=== PATIENT | female | born 1935 | race Caucasian/White ===

== ENCOUNTER 2022-01-14 07:25 | Emergency (ER) | payer MEDICARE, SELFPAY ==
--- NOTE | ~2022-01-14 | XR_ITS ---
EXAMINATION: XR chest 2V DATE: 01/14/2022 08:17 INDICATION: Neck and jaw pain TECHNIQUE: PA and lateral views of the chest are obtained. COMPARISON: 03/01/2005 FINDINGS: There is mild atelectasis of the lung bases. No pleural effusion or pneumothorax. The cardi omediastinal silhouette is normal. There is severe thoracic spondylosis. IMPRESSION: 1. No acute cardiopulmonary abnormality. Reviewed, dictated and finalized at location A.
--- NOTE | 2022-01-14 07:33 | ECG_ITS ---
Measurements Intervals [place] Rate: 78 P: 52 PA: 154 QRS: -7 QRSD: 86 T: 43 QT: 370 QTc: 423 Interpretive Statements SINUS RHYTHM Electronically Signed On 01-14-2022 8:53:50 CDT by Kirt Dominguez M.D.
[2022-01-14 07:37] VITALS: PULSE 76; RESP 18; TEMP 36.6
--- NOTE | 2022-01-14 07:40 | ED.CHESTPAIN ---
HPI - Chest Pain General Chief Complaint: Chest Pain Stated Complaint: jaw pain, left arm pain, SOB Time Seen by Provider: 01/14/22 07:39 Related Data Home Medications Medication Instructions Recorded Confirmed alprazolam 2 mg tablet 2 mg PO HS 01/14/22 01/14/22 levothyroxine 50 mcg tablet 50 mcg PO DAILY 01/14/22 01/14/22 Allergies Allergy/AdvReac Type Severity Reaction Status Date / Time codeine Allergy Unknown TACHYCARDIA Verified 01/14/22 07:44 naproxen Allergy Unknown Rash Verified 01/14/22 07:44 NONSTEROIDAL Allergy Unknown Rash Uncoded 01/14/22 07:44 Course Vital Signs Vital signs: Vital Signs Temperature 36.6 C 01/14/22 07:37 Pulse Rate 76 01/14/22 07:37 Respiratory Rate 18 01/14/22 07:37 Temperature 36.6 C 01/14/22 07:37 Pulse Rate 75 01/14/22 07:52 Respiratory Rate 17 01/14/22 07:52 Blood Pressure 159/95 H 01/14/22 07:52 Pulse Oximetry 94 01/14/22 07:52 Oxygen Delivery Room Air 01/14/22 07:52 MDM - Chest Pain Lab Data Result diagrams: 01/14/22 07:54 01/14/22 07:55 Labs: Lab Results 01/14/22 01/14/22 01/14/22 Range/Units 07:54 07:54 07:55 WBC 6.3 (4.5-10.0) K/mm3 RBC 4.62 (4.2-5.4) M/mm3 Hgb 13.6 (12.0-15.0) g/dL Hct 41.9 (37.0-47.0) % MCV 90.7 (80-100) fl MCH 29.4 (26-34) pg MCHC 32.5 (32-36) g/dl RDW 14.3 (11.5-14.5) % Plt Count 263 (150-375) k/mm3 MPV 10.5 H (7.4-10.4) fl Immature Gran % (Auto) 0.3 (0-0.5) % Neut % (Auto) 46.4 (45.5-73.1) % Lymph % (Auto) 38.5 (18.3-44.2) % Harlan % (Auto) 10.0 H (2.6-8.5) % Eos % (Auto) 3.8 (0-4.4) % Baso % (Auto) 1.0 (0.2-1.2) % Lymph # (Auto) 2.43 (0.9-3.2) K/mm3 Harlan # (Auto) 0.6 (0.1-0.6) K/mm3 Eos # (Auto) 0.2 (0-0.3) K/mm3 Baso # (Auto) 0.1 (0.0-0.1) K/mm3 Abs Immat Gran (auto) 0.02 (0.00-0.031) K/mm3 Absolute Neuts (auto) 2.9 (1.3-6.7) K/mm3 Absolute Nucleated RBC 0.0 (0.0-0.012) K/mm3 Nucleated RBC % 0.0 (0.0-0.2) % PT 13.7 (11.1-14.7) Seconds INR 1.1 APTT 26.0 (22.3-36.8) SECONDS Sodium Pending Potassium Pending Chloride Pending Carbon Dioxide Pending Anion Gap Pending BUN Pending Creatinine Pending Estim Creat Clear Calc Pending Estimated GFR Pending Glucose Pending Calcium Pending Total Bilirubin Pending AST Pending ALT Pending Alkaline Phosphatase Pending Troponin I Pending Total Protein Pending Albumin Pending Lipase Pending Discharge Plan Discharge Prescriptions: No Action levothyroxine 50 mcg tablet 50 mcg PO DAILY alprazolam 2 mg tablet 2 mg PO HS Follow-up/Referrals: Alana,Aviva Graves MD [Primary Care Provider] -
[2022-01-14 07:52] VITALS: BP 159/95; PULSE 72; PULSE 75; RESP 17; O2SAT 94
[2022-01-14 08:10] LABS: Basophils Absolute Auto 0.1 K/mm3 (0.0-0.1); Eosinophils Absolute Auto 0.2 K/mm3 (0-0.3); Eosinophils Percent Auto 3.8 % (0-4.4); Hematocrit 41.9 % (37.0-47.0); Hemoglobin 13.6 g/dL (12.0-15.0); Immature Granulocyte Absolute 0.02 K/mm3 (0.00-0.031); Immature Granulocyte Percent A 0.3 % (0-0.5); Lymphocytes Absolute Auto 2.43 K/mm3 (0.9-3.2); Lymphocytes Percent Auto 38.5 % (18.3-44.2); Mean Corpuscular HGB Conc 32.5 g/dl (32-36); Mean Corpuscular Hemoglobin 29.4 pg (26-34); Mean Corpuscular Volume 90.7 fl (80-100); Mean Platelet Volume 10.5 fl (7.4-10.4); Monocytes Absolute Auto 0.6 K/mm3 (0.1-0.6); Neutrophils Absolute Auto 2.9 K/mm3 (1.3-6.7); Neutrophils Percent Auto 46.4 % (45.5-73.1); Platelet Count Result 263 k/mm3 (150-375); Red Blood Count 4.62 M/mm3 (4.2-5.4); Red Cell Distribution Width 14.3 % (11.5-14.5); White Blood Count 6.3 K/mm3 (4.5-10.0)
[2022-01-14 08:11] LABS: INR 1.1; Prothrombin Time 13.7 Seconds (11.1-14.7)
[2022-01-14 08:21] LABS: Alanine Aminotransferase 15 U/L (6-35); Albumin Level 4.2 g/dL (3.5-5.1); Alkaline Phosphatase 63 U/L (38-126); Anion Gap 11 mmol/L (8-16); Aspartate Amino Transferase 26 U/L (14-36); Bilirubin,Total 0.6 mg/dL (0.2-1.3); Blood Urea Nitrogen 14 mg/dL (7-17); Carbon Dioxide 25 mmol/L (22-30); Chloride 102 mmol/L (98-107); Estimated CRCL calculation 55 ml/min; Estimated Glomerular Filt Rate > 60; Glucose 92 mg/dL (65-110); Lipase 103 U/L (23-300); Potassium 3.9 mmol/L (3.4-5.0); Sodium 138 mmol/L (137-145)
[2022-01-14 08:31] LABS: Troponin I < 0.012 ng/mL (0.000-0.034)
[2022-01-14 08:37] VITALS: BP 148/103; PULSE 72; RESP 20; O2SAT 94
--- NOTE | 2022-01-14 08:48 | ED.GENADULT ---
HPI - General Adult General Chief complaint: Weakness Time Seen by Provider: 01/14/22 07:39 Source: patient, family and RN notes reviewed Mode of arrival: ambulatory Limitations: no limitations History of Present Illness HPI narrative: 86 years old white female came to the emergency room with her , complaining of tiredness, lightheadedness, aches all over for the last 5 days. Patient also complaining of pressure in the head and ears which is chronic for years. Patient was seen at urgent care recently and the COVID was ruled out. Patient lives with asymptomatic . She denied any sneezing, fever, chills, coughing, chest pain or shortness of breath. Basically she is hurting all over including chest back extremities. History of hypothyroidism. Related Data Home Medications Medication Instructions Recorded Confirmed alprazolam 2 mg tablet 2 mg PO HS 01/14/22 01/14/22 levothyroxine 50 mcg tablet 50 mcg PO DAILY 01/14/22 01/14/22 Allergies Allergy/AdvReac Type Severity Reaction Status Date / Time codeine Allergy Unknown TACHYCARDIA Verified 01/14/22 07:44 naproxen Allergy Unknown Rash Verified 01/14/22 07:44 NONSTEROIDAL Allergy Unknown Rash Uncoded 01/14/22 07:44 Review of Systems Review of Systems: All systems reviewed & are unremarkable except as noted in HPI and below Exam Narrative: General appearance: Well-developed, well-nourished Skin: Normal color Head: Normocephalic, nontraumatic Eyes: Clear conjunctiva ENT: Oropharynx normal, ears normal, nose normal Neck: Supple, nontender Chest and respiratory: Airway patent, no respiratory distress, no accessory muscle use Heart: Regular rate/rhythm Abdomen: Soft, nontender, no organomegaly, quiet bowel sounds Vascular: Normal peripheral pulses, normal capillary refill. Musculoskeletal: Normal range of motion, nontender back Neurologic: Alert and oriented ?3, AIR POLLUTION COMPLIANCE INSPECTOR is normal as tested, no gross motor deficit Course Course Emergency Course: Patient presents with multiple symptoms, went to urgent care numerous of time in the last few days, does not have any any comorbidities, only history of hypothyroidism, patient does not smoke or drink, tested negative for COVID few days ago. Lives with asymptomatic . Depression, chronic ear pain, viral syndrome is my concern. Work-up today did not show any significant finding to explain her symptoms. Most of her symptoms are chronic and has been going for years. Last time was seen by her family doctor over 6 months ago. Vital Signs Vital signs: Vital Signs Temperature 36.6 C 01/14/22 07:37 Pulse Rate 76 01/14/22 07:37 Respiratory Rate 18 01/14/22 07:37 Temperature 36.6 C 01/14/22 07:37 Pulse Rate 72 01/14/22 08:37 Respiratory Rate 20 01/14/22 08:37 Blood Pressure 148/103 H 01/14/22 08:37 Pulse Oximetry 94 01/14/22 08:37 Oxygen Delivery Room Air 01/14/22 07:52 Medical Decision Making Vital Signs Vital Signs: Vital Signs Temperature 36.6 C 01/14/22 07:37 Pulse Rate 76 01/14/22 07:37 Respiratory Rate 18 01/14/22 07:37 Temperature 36.6 C 01/14/22 07:37 Pulse Rate 72 01/14/22 08:37 Respiratory Rate 20 01/14/22 08:37 Blood Pressure 148/103 H 01/14/22 08:37 Pulse Oximetry 94 01/14/22 08:37 Oxygen Delivery Room Air 01/14/22 07:52 Lab Data Result diagrams: 01/14/22 07:54 01/14/22 07:55 Labs: Lab Results 01/14/22 01/14/22 01/14/22 Range/Units 07:54 07:54 07:55 WBC 6.3 (4.5-10.0) K/mm3 RBC 4.62 (4.2-5.4) M/mm3 Hgb 13.6 (12.0-15.0) g/dL Hct 41.9 (37.0-47.0) % MCV 90.7 (80-100) fl MCH 29.4 (2
[2022-01-14 10:12] VITALS: BP 130/86; PULSE 71; RESP 17; O2SAT 95
== END 2022-01-14 10:14 | disposition home or self-care (01) ==
PROVIDERS: Emergency Provider Emergency Medicine; PCP Family Medicine
DX: B34.9 Viral infection, unspecified (principal); H92.03 Otalgia, bilateral; G89.29 Other chronic pain; E03.9 Hypothyroidism, unspecified; R07.9 Chest pain, unspecified
CPT/HCPCS: 36415; 71046; 80053; 83690; 84484; 85025; 85610; 85730; 93005; 99284

== ENCOUNTER 2022-05-27 13:14 | Emergency (ER) | payer MEDICARE, SELFPAY ==
[2022-05-27] VITALS (7 sets, daily range): BP systolic 159–168; BP diastolic 88–95; PULSE 71–101; RESP 11–20; TEMP 36.9; O2SAT 94–100
--- NOTE | ~2022-05-27 | XR_ITS ---
EXAMINATION: XR chest 2V DATE: 05/27/2022 14:12 INDICATION: Shortness of breath. Chest pain. TECHNIQUE: Frontal and lateral views of the chest were obtained. COMPARISON: Chest 2 views 01/14/2022 FINDINGS: There is mild atelectasis at left lung base. No pleural effusion or pneumothorax. The heart size is normal. IMPRESSION: 1. Mild atelectasis at left lung base. Reviewed, dictated and finalized at location A. RINARY PARASITOLOGIST
--- NOTE | 2022-05-27 13:22 | ECG_ITS ---
Measurements Intervals [place] Rate: 93 P: 51 MA: 149 QRS: 3 QRSD: 94 T: 43 QT: 327 QTc: 407 Interpretive Statements SINUS RHYTHM VENTRICULAR PREMATURE COMPLEX BORDERLINE ECG COMPARED TO ECG 01/14/2022 07:36:44 NO SIGNIFICANT CHANGES Electronically Signed On 05-27-2022 13:29:48 MEDICAL RECORDS CUSTODIAN by Spencer Ellison D.O.
[2022-05-27 13:38] LABS: Basophils Percent Auto 0.4 % (0.2-1.2); Eosinophils Percent Auto 0.3 % (0-4.4); Hematocrit 42.1 % (37.0-47.0); Hemoglobin 13.4 g/dL (12.0-15.0); Immature Granulocyte Absolute 0.04 K/mm3 (0.00-0.031); Immature Granulocyte Percent A 0.6 % (0-0.5); Lymphocytes Absolute Auto 1.38 K/mm3 (0.9-3.2); Lymphocytes Percent Auto 19.1 % (18.3-44.2); Mean Corpuscular HGB Conc 31.8 g/dl (32-36); Mean Corpuscular Hemoglobin 28.9 pg (26-34); Mean Corpuscular Volume 90.7 fl (80-100); Mean Platelet Volume 10.4 fl (7.4-10.4); Monocytes Absolute Auto 0.2 K/mm3 (0.1-0.6); Monocytes Percent Auto 2.2 % (2.6-8.5); Neutrophils Absolute Auto 5.6 K/mm3 (1.3-6.7); Neutrophils Percent Auto 77.4 % (45.5-73.1); Platelet Count Result 259 k/mm3 (150-375); Red Blood Count 4.64 M/mm3 (4.2-5.4); Red Cell Distribution Width 14.1 % (11.5-14.5); White Blood Count 7.2 K/mm3 (4.5-10.0)
[2022-05-27 13:50] LABS: Alanine Aminotransferase 25 U/L (6-35); Albumin Level 4.4 g/dL (3.5-5.1); Alkaline Phosphatase 76 U/L (38-126); Anion Gap 9 mmol/L (8-16); Aspartate Amino Transferase 29 U/L (14-36); Bilirubin,Total 0.5 mg/dL (0.2-1.3); Blood Urea Nitrogen 16 mg/dL (7-17); Calcium 8.8 mg/dL (8.4-10.2); Carbon Dioxide 24 mmol/L (22-30); Chloride 104 mmol/L (98-107); Estimated CRCL calculation 55 ml/min; Estimated Glomerular Filt Rate > 60; Glucose 180 mg/dL (65-110); Lipase 95 U/L (23-300); Potassium 4.3 mmol/L (3.4-5.0); Prothrombin Time 13.1 Seconds (11.1-14.7); Sodium 137 mmol/L (137-145)
[2022-05-27 13:51] LABS: Partial Thromboplastin Time 25.1 SECONDS (22.3-36.8)
[2022-05-27 14:01] LABS: Troponin I < 0.012 ng/mL (0.000-0.034)
--- NOTE | 2022-05-27 15:54 | ED.SOB ---
HPI - SOB/Dyspnea General Chief Complaint: Shortness of Breath/Dyspnea Stated Complaint: sob Time Seen by Provider: 05/27/22 14:47 History of Present Illness HPI Narrative: Patient is an 86-year-old female with a history of hypothyroidism, polymyalgia rheumatica presenting with shortness of breath. Patient states that for the last several weeks she has had ongoing shortness of breath. She denies alleviating or aggravating factors. States that she has also had some left-sided chest tightness for many months. States that she recently saw her PCP approximately a week ago and she was diagnosed with emphysema. She was also diagnosed with polymyalgia rheumatica. She was started on prednisone approximately 4 days ago. Patient states that she has also noticed that her blood pressure has been high lately. She called her PCP who recommended that she come in today for evaluation of her blood pressure and shortness of breath. She denies fevers or chills, numbness or weakness, abdominal pain, nausea or vomiting, diarrhea, leg swelling. Related Data Home Medications Medication Instructions Recorded Confirmed alprazolam 2 mg tablet 1 mg PO HS 01/14/22 02/20/22 levothyroxine 50 mcg tablet 50 mcg PO DAILY 01/14/22 02/20/22 fluticasone propionate 50 g intranasal 02/20/22 02/20/22 mcg/actuation nasal spray,suspension loratadine 10 mg tablet (Claritin) 10 mg PO DAILY 02/20/22 02/20/22 prednisone 5 mg tablets in a dose mg 05/27/22 pack Allergies Allergy/AdvReac Type Severity Reaction Status Date / Time codeine Allergy Unknown TACHYCARDIA Verified 05/27/22 15:11 naproxen Allergy Unknown Rash Verified 05/27/22 15:11 NONSTEROIDAL Allergy Unknown Rash Uncoded 02/20/22 10:17 Review of Systems Review of Systems: All systems reviewed & are unremarkable except as noted in HPI and below PMFSH Family History Family History Father Malignant neoplasm of prostate Sibling Malignant neoplasm of prostate Hypertension Grandparent Depression Social History Social History Smoking status: Never smoker Alcohol intake: never Substance use: never Exam Narrative: GENERAL: Well-appearing, well-nourished, and in no acute distress. HEAD: Normocephalic, atraumatic. EYES: PERRLA and EOMI. ENT: Nares clear, no rhinorrhea or epistaxis. Mucous membranes moist. NECK: Supple. CHEST: Clear to auscultation. No respiratory distress. HEART: Regular rate and rhythm. No murmur heard. Normal peripheral pulses. ABDOMEN: Soft, nontender, nondistended, normal active bowel sounds. EXTREMITIES: Normal range of motion. No edema. SKIN: Warm, dry, no rash. NEURO: No focal deficits. Alert and oriented x3. PSYCH: Normal mood and affect. Course Vital Signs Vital signs: Vital Signs Temperature 98.4 F 05/27/22 13:23 Pulse Rate 101 H 05/27/22 13:23 Respiratory Rate 20 05/27/22 13:23 Blood Pressure 159/88 H 05/27/22 13:23 Pulse Oximetry 96 05/27/22 13:23 Oxygen Delivery Room Air 05/27/22 13:23 Temperature 98.4 F 05/27/22 13:23 Pulse Rate 79 05/27/22 17:36 Respiratory Rate 20 05/27/22 17:36 Blood Pressure 168/95 H 05/27/22 17:36 Pulse Oximetry 99 05/27/22 17:36 Oxygen Delivery Room Air 05/27/22 16:06 MDM - SOB/Dyspnea MDM Narrative Medical decision making narrative: Patient is an 86-year-old female presenting with shortness of breath for several weeks. Patient is hypertensive, otherwise vitals are within normal limits. She is saturating well on room air. States that she was diagnosed with emphysema approximately a week ago. She was given an inhaler at the time which she states is possibly been helping minimally. EKG per my interpretation shows normal sinus rhythm, normal axis and intervals, rare PVC, no ST elevations or depressions. Appears unchanged from prior. Her blood work is unremar
[2022-05-27] MEDS: IPRATROPIUM BR 0.02% INH SOLN 0.5 MG/2.5 ML VIAL INHALATION (16:01)
[2022-05-27] MEDS: ALBUTEROL SULFATE NEB 2.5 MG/3 ML INH 5 MG INHALATION (16:01)
[2022-05-27 16:59] LABS: Troponin I < 0.012 ng/mL (0.000-0.034)
== END 2022-05-27 17:33 | disposition home or self-care (01) ==
PROVIDERS: Emergency Medicine; Emergency Provider Emergency Medicine; PCP Family Medicine
DX: R06.02 Shortness of breath (principal); E03.9 Hypothyroidism, unspecified
CPT/HCPCS: 36415; 71046; 80053; 83690; 84484; 85025; 85610; 85730; 93005; 94640; 99284

== ENCOUNTER 2022-07-23 20:26 | Emergency (ER) | payer MEDICARE, SELFPAY ==
[2022-07-23 20:27] VITALS: BP 188/110; PULSE 88; RESP 16; TEMP 36.7; O2SAT 97
[2022-07-23 20:47] LABS: Basophils Absolute Auto 0.1 K/mm3 (0.0-0.1); Basophils Percent Auto 0.8 % (0.2-1.2); Eosinophils Absolute Auto 0.2 K/mm3 (0-0.3); Eosinophils Percent Auto 2.8 % (0-4.4); Hematocrit 44.1 % (37.0-47.0); Hemoglobin 14.3 g/dL (12.0-15.0); Immature Granulocyte Absolute 0.03 K/mm3 (0.00-0.031); Immature Granulocyte Percent A 0.4 % (0-0.5); Lymphocytes Absolute Auto 2.75 K/mm3 (0.9-3.2); Lymphocytes Percent Auto 35.3 % (18.3-44.2); Mean Corpuscular HGB Conc 32.4 g/dl (32-36); Mean Corpuscular Hemoglobin 29.4 pg (26-34); Mean Corpuscular Volume 90.7 fl (80-100); Mean Platelet Volume 10.6 fl (7.4-10.4); Monocytes Absolute Auto 0.6 K/mm3 (0.1-0.6); Neutrophils Absolute Auto 4.1 K/mm3 (1.3-6.7); Neutrophils Percent Auto 52.7 % (45.5-73.1); Platelet Count Result 281 k/mm3 (150-375); Red Blood Count 4.86 M/mm3 (4.2-5.4); Red Cell Distribution Width 14.7 % (11.5-14.5); White Blood Count 7.8 K/mm3 (4.5-10.0)
[2022-07-23 20:56] LABS: Alanine Aminotransferase 21 U/L (6-35); Albumin Level 4.5 g/dL (3.5-5.1); Alkaline Phosphatase 69 U/L (38-126); Anion Gap 6 mmol/L (8-16); Aspartate Amino Transferase 25 U/L (14-36); Bilirubin,Total 0.6 mg/dL (0.2-1.3); Blood Urea Nitrogen 15 mg/dL (7-17); Calcium 9.3 mg/dL (8.4-10.2); Carbon Dioxide 25 mmol/L (22-30); Chloride 104 mmol/L (98-107); Estimated CRCL calculation 47 ml/min; Estimated Glomerular Filt Rate > 60; Glucose 118 mg/dL (65-110); Lipase 124 U/L (23-300); Potassium 3.8 mmol/L (3.4-5.0); Prothrombin Time 13.1 Seconds (11.1-14.7); Sodium 135 mmol/L (137-145)
[2022-07-23 20:57] LABS: Partial Thromboplastin Time 23.9 SECONDS (22.3-36.8)
[2022-07-23 21:07] LABS: Troponin I < 0.012 ng/mL (0.000-0.034)
[2022-07-23 22:38] VITALS: BP 188/101
[2022-07-24 00:02] VITALS: BP 177/106; PULSE 100; RESP 19; O2SAT 100
--- NOTE | 2022-07-24 00:13 | PC.NURSE ---
pt. to desk manager stating I'm going home, I can't handle being out there. PT. ambulated out of ed w/ steady gait. pt. advised to follow up w/ pcp or seek treatment if ss are worse.
== END 2022-07-24 02:30 | disposition left against medical advice (07) ==
PROVIDERS: Emergency Provider Emergency Medicine; PCP Family Medicine
DX: I10 Essential (primary) hypertension (principal)
CPT/HCPCS: 36415; 80053; 83690; 84484; 85025; 85610; 85730; 99199

== ENCOUNTER 2022-07-30 00:38 | Day surgery (SDC) | payer MEDICARE, SELFPAY ==
[2022-07-21 16:05] VITALS: BMI 25.4
--- NOTE | 2022-07-29 10:41 | PM.HPGS ---
History of Present Illness History of Present Illness Consent: Risks, benefits, and alternatives have been discussed and questions answered. Patient agrees to proceed with procedure. Chief complaint: neoplasm screening Narrative: Rossana Andrews is a 87 year old female who was referred for colon cancer screening. She has a family history of colon cancer. her twin sister was diagnosed with colon cancer just a couple of years ago. Review of Systems Review of Systems: All systems reviewed & are unremarkable except as noted in HPI and below PMFSH Past Medical History Medical History Polymyalgia rheumatica Family History Family History Father Malignant neoplasm of prostate Sibling Malignant neoplasm of prostate Hypertension Grandparent Depression Social History Social History Smoking status: Never smoker Alcohol intake: never Substance use: never Substance use type: does not use Living arrangements: with family Spiritual care concerns: No Meds Home Medications and Allergies Home Medications Medication Instructions Recorded Confirmed Type alprazolam 2 mg tablet 1 mg PO HS 01/14/22 07/21/22 History levothyroxine 50 mcg tablet 50 mcg PO DAILY 01/14/22 07/21/22 History fluticasone propionate 50 g intranasal 02/20/22 02/20/22 History mcg/actuation nasal spray,suspension ipratropium bromide 21 mcg (0.03 2 spray intranasal TID #30 mL 02/20/22 07/21/22 Rx %) nasal spray loratadine 10 mg tablet (Claritin) 10 mg PO DAILY #90 tabs 07/21/22 07/21/22 Rx pantoprazole 20 mg tablet,delayed 20 mg PO QAM #90 tabs 07/21/22 07/21/22 Rx release (Protonix) prednisone 2.5 mg tablet 2.5 mg PO DAILY #40 tabs 07/21/22 07/21/22 Rx Allergies Allergy/AdvReac Type Severity Reaction Status Date / Time codeine Allergy Unknown TACHYCARDIA Verified 07/30/22 08:31 naproxen Allergy Unknown Rash Verified 07/30/22 08:31 NONSTEROIDAL Allergy Unknown Rash Uncoded 07/30/22 08:31 Exam Const: General: alert Orientation/consciousness: patient oriented x3 Resp: Auscultation: clear to auscultation bilaterally Cardio: Rhythm: regular rhythm GI: GI Palp: Yes Soft to palpation and No Tenderness to palpation present (GI) Neuro: General: patient oriented x3 Assessment and Plan Assessment and plan (1) Colon cancer screening: Code(s): Z12.11 - Encounter for screening for malignant neoplasm of colon Status: Acute Assessment and Plan: Colonoscopy with possible biopsy or polypectomy or cautery or injection of substances.
[2022-07-30 08:32] VITALS: BP 120/78; PULSE 91; RESP 20; TEMP 36.2; O2SAT 95; BMI 25.0
[2022-07-30] MEDS: LACTATED RINGERS 1,000 ML 150 ML IV CONT (08:35)
--- NOTE | 2022-07-30 08:51 | WPDANESEPPF ---
Anes - Initial Pre Proc Eval Procedure: Operation Date: 07/30/22 09:30 Proposed Procedures p Screening Colonoscopy - Allan Kilpatrick MD Date/Time: 07/30/22 08:51 Surgeon: Allan Kilpatrick MD Pre Op Diagnosis: neoplasm screening Patient Data Age: 87 Gender: F Height: 1.65 m Weight: 68.3 kg Last Vital Signs Temp 97.2 F L 07/30/22 08:32 Pulse 91 07/30/22 08:32 Resp 20 07/30/22 08:32 BP 120/78 07/30/22 08:32 Pulse Ox 95 07/30/22 08:32 O2 Del Method Room Air 07/30/22 08:32 Allergies Allergy/AdvReac Type Severity Reaction Status Date / Time codeine Allergy Unknown TACHYCARDIA Verified 07/30/22 08:31 naproxen Allergy Unknown Rash Verified 07/30/22 08:31 NONSTEROIDAL Allergy Unknown Rash Uncoded 07/30/22 08:31 Home Medications Medication Instructions Recorded Confirmed Type alprazolam 2 mg tablet 1 mg PO HS 01/14/22 07/21/22 History levothyroxine 50 mcg tablet 50 mcg PO DAILY 01/14/22 07/21/22 History fluticasone propionate 50 g intranasal 02/20/22 02/20/22 History mcg/actuation nasal spray,suspension ipratropium bromide 21 mcg (0.03 2 spray intranasal TID #30 mL 02/20/22 07/21/22 Rx %) nasal spray loratadine 10 mg tablet (Claritin) 10 mg PO DAILY #90 tabs 07/21/22 07/21/22 Rx pantoprazole 20 mg tablet,delayed 20 mg PO QAM #90 tabs 07/21/22 07/21/22 Rx release (Protonix) prednisone 2.5 mg tablet 2.5 mg PO DAILY #40 tabs 07/21/22 07/21/22 Rx Patient hx anesthesia problems: none Family hx anesthesia problems: none Results Review: All pre-operative results and documents have been reviewed as part of the pre-operative evaluation. [facility] Past Medical History Medical History Polymyalgia rheumatica Family History Family History Father Malignant neoplasm of prostate Sibling Malignant neoplasm of prostate Hypertension Grandparent Depression Social History Social History Smoking status: Never smoker Alcohol intake: never Substance use: never Substance use type: does not use Living arrangements: with family Spiritual care concerns: No Anes - Eval Final PreProcedure Day of Procedure 07/30/22 08:51 Patient weight: normal Heart: regular rate and rhythm Lungs: clear to auscultation Airway: Mallampati scale class II Neurological: alert and oriented Last oral intake: >/= 8 hours ASA classification: III Emergent: no Anesthetic plan: proceed Anesthesia type and monitoring: general GIVS and standard monitoring Results Review: All pre-operative results and documents have been reviewed as part of the pre-operative evaluation. Informed Consent: The patient's anesthetic plan and its attendant risks and benefits were discussed with the patient/family/POA. Questions were solicited and answers provided to the satisfaction of the patient/family/POA.
[2022-07-30] MEDS: SIMETHICONE ORAL SUSPENSION 20 MG/0.3 ML 30 ML BOTTLE 0.6 ML IRRIGATION (09:38)
[2022-07-30 09:50] VITALS: BP 98/65; PULSE 74; RESP 24; O2SAT 95
[2022-07-30 10:00] VITALS: BP 112/72; PULSE 71; RESP 17; O2SAT 96
[2022-07-30 10:10] VITALS: BP 122/79; PULSE 74; RESP 23; O2SAT 96
== END 2022-07-30 10:15 | disposition home or self-care (01) ==
PROVIDERS: PCP Family Medicine; Visit Provider Internal Medicine Gastroenterology
PROC: 0DJD8ZZ Inspection of Lower Intestinal Tract, Via Natural or Artificial Opening Endoscopic (ICD-10-PCS; CPT 45378; principal; 2022-07-30 09:30)
DX: Z12.11 Encounter for screening for malignant neoplasm of colon (principal); K57.30 Diverticulosis of large intestine without perforation or abscess without bleeding; K64.8 Other hemorrhoids; Z80.0 Family history of malignant neoplasm of digestive organs; M35.3 Polymyalgia rheumatica
CPT/HCPCS: G0105; J2370; J2704; J7120

== ENCOUNTER 2022-12-18 14:56 | Emergency (ER) | payer MEDICARE, SELFPAY ==
--- NOTE | ~2022-12-18 | XR_ITS ---
EXAMINATION: XR chest 1V INDICATION: Facial numbness, left-sided droopiness TECHNIQUE: AP view of the chest is obtained. COMPARISON: 05/27/2022 FINDINGS: There is a subtle opacity of the right midlung zone. There is chronic atelectasis or scarri ng of the left lung base. No pleural effusion or pneumothorax. The cardiomediastinal silhouette is no rmal. IMPRESSION: 1. Subtle opacity of the right midlung zone which may be infectious or inflammatory however underlyin g nodule is a consideration. CT of the chest is recommended. Reviewed, dictated and finalized at location F. IMPRESSION: 1. Subtle opacity of the right midlung zone which may be infectious or inflamma tory however underlying nodule is a consideration. CT of the chest is recommend ed.
--- NOTE | ~2022-12-18 | CT_ITS ---
EXAMINATION: CTA brain carotid DATE: 12/18/2022 17:33 INDICATION: Left facial numbness and droop TECHNIQUE: Computed tomographic angiography (CTA) of the head was performed with 100 mL Omnipaque-350 intravenous contrast. CTA of the neck was performed with intravenous contrast. The dose-length produ ct was 1087.76 mGy-cm. Maximum intensity projection and volume rendered 3D-reconstructions were creat ed by the technologist on a separate workstation. Automated exposure control and iterative reconstruc tion technique were employed. COMPARISON: 1520 hours FINDINGS: HEAD CTA: There is no acute intraparenchymal hemorrhage. No evidence of mass lesion. No evidence of a cute infarction. There is mild periventricular and subcortical hypodensity probably related to small vessel ischemic disease. There is mild prominence of the sulci and ventricles related to cerebral atr ophy. Intracranial calcified cerebral atherosclerosis is noted. There are no extra-axial collections. There is no mass effect or midline shift. Changes in the globes are likely from ocular lens surgery. There is mild mucosal thickening of the paranasal sinuses. There is no significant stenosis of the basilar artery or posterior cerebral arteries. There is no si gnificant stenosis of the intracranial internal carotid arteries or the anterior or middle cerebral a rteries. The anterior communicating artery and posterior communicating arteries are normal. There is no aneurysm. NECK CTA: There is a 1.4 cm enhancing nodule of the right thyroid lobe. The submandibular and parotid glands are symmetric. There is no lymphadenopathy. There are no masses identified. The airway is unr emarkable. There is moderate cervical spondylosis. The superior mediastinum is unremarkable. There is 0% stenosis of the proximal right internal carotid artery relative to normal distal artery l umen diameter (NASCET criteria). There is 0% stenosis of the proximal left internal carotid artery re lative to normal distal artery lumen diameter. IMPRESSION: 1. No acute intracranial abnormality. Normal head CTA. 2. 0% stenosis of the proximal right internal carotid artery relative to normal distal artery lumen d iameter (NASCET criteria). 3. 0% stenosis of the proximal left internal carotid artery relative to normal distal artery lumen di ameter. Reviewed, dictated and finalized at location F. IMPRESSION: 1. No acute intracranial abnormality. Normal head CTA. 2. 0% stenosis of the proximal right internal carotid artery relative to normal distal artery lumen diameter (NASCET criteria). 3. 0% stenosis of the proximal left internal carotid artery relative to normal distal artery lumen diameter.
--- NOTE | ~2022-12-18 | CT_ITS ---
EXAMINATION: CT brain wo con DATE: 12/18/2022 15:25 INDICATION: Left facial numbness. TECHNIQUE: Computed tomography (CT) of the head was performed without intravenous contrast. The mA wa s adjusted according to patient size. Iterative reconstruction technique was employed. The dose-lengt h product was 605.33 mGy-cm. COMPARISON: None FINDINGS: There are scattered areas of low attenuation in the cerebral white matter. There is no intr acranial hemorrhage, acute infarction, or abnormal intracranial mass lesion. The ventricles are ashwin l in size. There are likely changes of ocular lens replacement surgeries. There is mild mucosal thick ening in the paranasal sinuses. The mastoid air cells are normal. IMPRESSION: 1. Mild nonspecific cerebral white matter disease, which likely represents chronic small vessel ische kaleb disease. Reviewed, dictated and finalized at location L. IMPRESSION: 1. 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
--- NOTE | 2022-12-18 15:01 | ECG_ITS ---
Measurements Intervals [place] Rate: 88 P: 58 AR: 153 QRS: 2 QRSD: 81 T: 46 QT: 352 QTc: 428 Interpretive Statements SINUS RHYTHM NORMAL ELECTROCARDIOGRAM COMPARED TO ECG 05/27/2022 13:22:22 NO SIGNIFICANT CHANGES Electronically Signed On 12-19-2022 12:50:16 CDT by Alexander Adams M.D.
[2022-12-18 15:15] VITALS: BP 144/83; PULSE 89; RESP 16; TEMP 36.7; O2SAT 93
[2022-12-18 16:07] VITALS: BP 136/85; PULSE 76; PULSE 78; PULSE 79; RESP 16; O2SAT 95; O2SAT 96
[2022-12-18 16:12] LABS: Basophils Percent Auto 0.5 % (0.2-1.2); Eosinophils Percent Auto 0.2 % (0-4.4); Hematocrit 42.4 % (37.0-47.0); Hemoglobin 13.8 g/dL (12.0-15.0); Immature Granulocyte Absolute 0.02 K/mm3 (0.00-0.031); Immature Granulocyte Percent A 0.2 % (0-0.5); Lymphocytes Absolute Auto 2.02 K/mm3 (0.9-3.2); Lymphocytes Percent Auto 23.3 % (18.3-44.2); Mean Corpuscular HGB Conc 32.5 g/dl (32-36); Mean Corpuscular Hemoglobin 29.7 pg (26-34); Mean Corpuscular Volume 91.2 fl (80-100); Mean Platelet Volume 10.5 fl (7.4-10.4); Monocytes Absolute Auto 0.6 K/mm3 (0.1-0.6); Monocytes Percent Auto 7.4 % (2.6-8.5); Neutrophils Absolute Auto 5.9 K/mm3 (1.3-6.7); Neutrophils Percent Auto 68.4 % (45.5-73.1); Platelet Count Result 251 k/mm3 (150-375); Red Blood Count 4.65 M/mm3 (4.2-5.4); Red Cell Distribution Width 14.4 % (11.5-14.5); White Blood Count 8.7 K/mm3 (4.5-10.0)
[2022-12-18 16:23] LABS: Partial Thromboplastin Time 24.1 SECONDS (22.3-36.8); Prothrombin Time 13.2 Seconds (11.1-14.7)
[2022-12-18 16:29] LABS: Alanine Aminotransferase 35 U/L (6-35); Albumin Level 4.7 g/dL (3.5-5.1); Alkaline Phosphatase 52 U/L (38-126); Anion Gap 8 mmol/L (8-16); Aspartate Amino Transferase 36 U/L (14-36); Bilirubin,Total 0.4 mg/dL (0.2-1.3); Blood Urea Nitrogen 20 mg/dL (7-17); Calcium 9.3 mg/dL (8.4-10.2); Carbon Dioxide 29 mmol/L (22-30); Chloride 101 mmol/L (98-107); Estimated CRCL calculation 47 ml/min; Estimated Glomerular Filt Rate > 60; Glucose 105 mg/dL (65-110); Potassium 4.3 mmol/L (3.4-5.0); Sodium 138 mmol/L (137-145)
[2022-12-18 16:39] LABS: Troponin I < 0.012 ng/mL (0.000-0.034)
--- NOTE | 2022-12-18 17:19 | ED.NEUROSD ---
HPI - Neuro Symptoms/Deficit General Chief Complaint: Neuro Symptoms/Deficit Stated Complaint: ?CVA Time Seen by Provider: 12/18/22 17:02 Source: patient Mode of arrival: ambulatory Limitations: no limitations History of Present Illness HPI Narrative: 87 year old female presents from primary care office for concerns of possible stroke. Patient was seen in primary care office today with concerns of near syncope and left facial heaviness that last about 1 minute this am. Patiet states these near syncopal episodes have happened intermittently for the last year but she has never been as dizzy as she was this am. Denies chest pain, sob, or diaphoresis. No other neuro complaints. Related Data Home Medications Medication Instructions Recorded Confirmed alprazolam 2 mg tablet 1 mg PO HS 01/14/22 07/21/22 levothyroxine 50 mcg tablet 50 mcg PO DAILY 01/14/22 07/21/22 fluticasone propionate 50 g intranasal 02/20/22 02/20/22 mcg/actuation nasal spray,suspension Allergies Allergy/AdvReac Type Severity Reaction Status Date / Time codeine Allergy Unknown TACHYCARDIA Verified 12/18/22 16:11 naproxen Allergy Unknown Rash Verified 12/18/22 16:11 NONSTEROIDAL Allergy Unknown Rash Uncoded 12/18/22 16:11 Review of Systems Review of Systems: All systems reviewed & are unremarkable except as noted in HPI and below PMFSH Past Medical History Medical History Polymyalgia rheumatica Family History Family History Father Malignant neoplasm of prostate Sibling Malignant neoplasm of prostate Hypertension Grandparent Depression Social History Social History Smoking status: Never smoker Alcohol intake: never Substance use: never Substance use type: does not use Living arrangements: with family Spiritual care concerns: No Exam Const: General: cooperative, healthy appearing, comfortable, no acute distress and well developed Orientation/consciousness: patient oriented x3 HENMT: Head: normal to inspection Ears: TM's normal bilaterally Eyes: General: appearance normal, both eyes and all related structures Pupils: Equal, round and reactive pupils present EOM: EOMs intact bilaterally Resp: Effort & Inspection: normal respiratory effort and able to speak in complete sentences Auscultation: clear to auscultation bilaterally Cardio: Rate: regular rate Rhythm: regular rhythm Heart sounds: S1 normal heart sound present and S2 normal heart sound present Neuro: General: patient oriented x3, moves all extremities and CN's II-XI intact bilaterally Cranial nerves: Yes Nystagmus not present Speech: normal speech Course Course Emergency Course: Patient without symptoms during stay. Discussed original CT findings aware will get further imaging and urinalysis. Discussed all lab work and CTA with patient. She is aware that there is a thyroid nodule seen but CTA shows no stenosis. No arrhythmia noted while patient here. All symptoms have resolved. Will discharge patient home with plan follow-up with primary care provider due to this being a chronic issue intermittently over the last year. Patient in agreement with plan of care. Vital Signs Vital signs: Vital Signs Temperature 98.1 F 12/18/22 15:15 Pulse Rate 89 12/18/22 15:15 Respiratory Rate 16 12/18/22 15:15 Blood Pressure 144/83 H 12/18/22 15:15 Pulse Oximetry 93 12/18/22 15:15 Oxygen Delivery Room Air 12/18/22 15:15 Temperature 98.1 F 12/18/22 15:15 Pulse Rate 78 12/18/22 16:07 Respiratory Rate 16 12/18/22 16:07 Blood Pressure 136/85 12/18/22 16:07 Pulse Oximetry 96 12/18/22 16:07 Oxygen Delivery Room Air 12/18/22 15:15 MDM - Neuro Symptoms/Deficit MDM Narrative Medical decision making narrative: 87-year-old female HPI as noted. Differentials as sta
[2022-12-18 18:51] LABS: Appearance Urine Clear (Clear); Bilirubin Urine Negative (Negative); Blood Urine Negative (Negative); Color Urine Yellow (Yellow); Glucose Urine UA Negative (Negative); Ketones Urine Trace mg/dL (Negative); Leukocyte Esterase Ur Negative LEU/UL (Negative); Nitrate Urine Negative (Negative); Protein Urine Negative (Negative); Urobilinogen Urine 0.2 mg/dL (<2.0); pH Urine 7.5 (5.0-9.0)
[2022-12-18 19:03] LABS: Specific Grav Ur 1.049 (1.001-1.035)
[2022-12-18 19:04] LABS: Add Urine Microscopic? NO
== END 2022-12-18 19:30 | disposition home or self-care (01) ==
PROVIDERS: General Practice; Emergency Provider Nurse Practitioner Family; PCP Family Medicine
DX: R42 Dizziness and giddiness (principal); M35.3 Polymyalgia rheumatica; R90.82 White matter disease, unspecified
CPT/HCPCS: 36415; 70450; 70496; 70498; 71045; 80053; 81003; 84484; 85025; 85610; 85730; 93005; 99284; Q9967